=== PATIENT | male | born 1960 | race Caucasian/White ===

== ENCOUNTER 2024-05-05 11:58 | Inpatient (IN) ==
[2024-05-05 12:15] LABS: ABS Basophils 0.1 10^3/uL (0.0-0.1); ABS Eosinophils 0.3 10^3/uL (0.0-0.5); ABS Lymphocytes 2.6 10^3/uL (1.0-4.8); ABS Monocytes 0.9 10^3/uL (0.0-1.1); ABS Neutrophils 6.2 10^3/uL (1.5-7.6); ABS Nucleated RBC 0.01 10^3/ul; Eosinophil % 2.7 %; Hematocrit 42.5 % (38-53); Hemoglobin 14.7 g/dL (13.2-16.3); Lymphocyte % 25.9 %; Mean Corpuscular Hemoglobin 31.2 pg (27-33); Mean Corpuscular Hgb Conc 34.6 g/dL (31-36); Mean Corpuscular Volume 90.1 fL (80-97); Mean Platelet Volume 9.3 fL (7.5-11.2); Nucleated Red Blood Cells % 0.1 %/100WBC (0.0-0.8); Platelet Count 225 10^3/uL (150-450); Red Blood Count 4.72 10^6/uL (4.06-5.63); Red Cell Distribution Width 13.6 % (12-17)
[2024-05-05] MEDS ORDERED: Heparin 5000 UNITS/ML 1 mL VIAL ONE ×2 (12:21→12:22)
[2024-05-05 12:22] LABS: INR 1.12 (0.85-1.14)
[2024-05-05] MEDS ORDERED: Lidocaine 1% VIAL 10 MG/ML 30 ML VIAL ONE ×2 (12:33→19:36)
[2024-05-05] MEDS ORDERED: Heparin 1,000 UNIT/ML 10 ml (10,000 UNITS) CATHLAB/DIALYSIS ONE ×2 (12:33→19:36)
[2024-05-05] MEDS ORDERED: VERAPAMIL 2.5 MG/ML 2 ML VIAL ** 5 mg/2 ml ONE (12:33)
[2024-05-05] MEDS ORDERED: Heparin 2 UNITS/ML 1000 mls 3,000 ML IV ONE ×2 (12:34→19:37)
[2024-05-05] MEDS ORDERED: nitroGLYCERIN DRIP 25,000 MCG/250 ML BTL ONE ×2 (12:34→19:37)
[2024-05-05] MEDS ORDERED: Iohexol 350 (CONTRAST) 200 ML MDV IV ONE ×2 (12:35→19:37)
[2024-05-05] MEDS ORDERED: fentaNYL 100 mcg/2 ml 50 MCG/ML VIAL ONE ×3 (12:35→19:36)
[2024-05-05] MEDS ORDERED: Midazolam 5 mg/5 ml VIAL 1 mg/ml 5 ml VIAL (5 mg) ONE ×2 (12:35→19:36)
[2024-05-05 13:06] LABS: Calcium 9.1 mg/dL (8.6-10.3); Creatinine, Serum 0.96 mg/dL (0.67-1.17); eGFR CKD-EPI 87.7 (>60)
[2024-05-05 13:07] LABS: Albumin 3.9 g/dL (3.5-5.7); Albumin/Globulin Ratio 1.7 (1-3); Globulin 2.3 g/dL (2-4); Total Bilirubin 0.4 mg/dL (0.2-1.0); Total Protein 6.2 g/dL (6.4-8.9)
[2024-05-05] MEDS ORDERED: Bivalirudin 250 MG VIAL ONE ×4 (13:08→20:14)
[2024-05-05 13:19] LABS: Potassium 4.1 mmol/L (3.5-5.0)
[2024-05-05] MEDS ORDERED: Atropine 0.1 MG/ML 10 ml SYR (1 mg) ONE ×2 (13:36→20:45)
[2024-05-05] MEDS ORDERED: Iohexol 350 (CONTRAST) 100 ML PAK IV ONE ×3 (13:53→15:41)
[2024-05-05] MEDS ORDERED: Heparin 2 UNITS/ML 1000 mls 1,000 ML IV ONE ×2 (14:01→14:43)
[2024-05-05] MEDS ORDERED: Amiodarone IV 150 mg/3 ml VIAL ONE (15:08)
[2024-05-05] MEDS ORDERED: Magnesium Sulfate IV 1GM/100ML 1 GM/100 ML BAG IV ONE ×2 (15:09→15:19)
[2024-05-05] MEDS ORDERED: Amiodarone 150 mg IVPREMIX 150 MG/100 ML BAG IV ONE (15:10)
[2024-05-05] MEDS ORDERED: Phenylephrine 40 mcg/mL 10mL (400mcg) SYRINGE ONE ×2 (15:26→20:57)
[2024-05-05] MEDS ORDERED: DOPamine 800 MG/250 ML IVPREMX 800 MG/250 ML ML CENTR ONE (15:29)
[2024-05-05] MEDS ORDERED: Norepinephrine 4 MG/250mL D5W 0 MCG/0 ML BAG IV ONE (15:34)
[2024-05-05 18:06] LABS: HDL Cholesterol 34.5 mg/dL
[2024-05-05] MEDS: NS 0.9% 1000 ml BAG 1,000 ML IV SCH (18:25)
[2024-05-05] MEDS: Ondansetron 4 mg VIAL 2 MG/ML 2 ml VIAL IV ONE (18:41)
[2024-05-05] MEDS ORDERED: Eptifibatide IV (Load dose) 2 MG/ML 10 ml VIAL ONE ×2 (21:02→21:10)
[2024-05-05] MEDS ORDERED: Heparin 5000 UNITS/ML 1 mL VIAL IV SCH (22:00)
[2024-05-05] MEDS: Heparin DRIP 25,000 UNITS BAG 25,000 UNITS/250 ML BAG IV SCH (22:19)
[2024-05-05] MEDS: Ondansetron 4 mg VIAL 2 MG/ML 2 ml VIAL ONE (22:25)
[2024-05-05] MEDS: Heparin DRIP 25,000 UNITS BAG 25,000 UNITS/250 ML BAG IV ONE (22:26)
[2024-05-05] MEDS: Nicotine PATCH 21 MG/24 HR PATCH TRANSDERM SCH (22:28)
[2024-05-06 05:36] LABS: ABS Eosinophils 0.1 10^3/uL (0.0-0.5); ABS Lymphocytes 1.4 10^3/uL (1.0-4.8); ABS Monocytes 1.1 10^3/uL (0.0-1.1); Eosinophil % 0.6 %; Hematocrit 38.7 % (38-53); Hemoglobin 13.3 g/dL (13.2-16.3); Mean Corpuscular Hemoglobin 30.7 pg (27-33); Mean Corpuscular Hgb Conc 34.5 g/dL (31-36); Mean Platelet Volume 9.6 fL (7.5-11.2); Platelet Count 228 10^3/uL (150-450); Red Blood Count 4.35 10^6/uL (4.06-5.63); Red Cell Distribution Width 13.3 % (12-17); White Blood Count 12.6 10^3/uL (3.6-10.2)
[2024-05-06 05:54] LABS: Albumin 3.7 g/dL (3.5-5.7); Albumin/Globulin Ratio 1.9 (1-3); Calcium 8.6 mg/dL (8.6-10.3); Creatinine, Serum 0.69 mg/dL (0.67-1.17); HDL Cholesterol 30.7 mg/dL; Total Bilirubin 0.5 mg/dL (0.2-1.0); Total Protein 5.7 g/dL (6.4-8.9); eGFR CKD-EPI 102.7 (>60)
[2024-05-06] MEDS: NS 0.9% 1000 ml BAG 1,000 ML IV SCH (06:04)
[2024-05-06] MEDS: Albuterol/Ipratropium NEB.SOL (2.5/0.5 MG) 3 ML NEB.SOLN INH PRN (11:46)
[2024-05-06] MEDS ORDERED: Albuterol/Ipratropium NEB.SOL (2.5/0.5 MG) 3 ML NEB.SOLN INH PRN (15:41)
[2024-05-06] MEDS: Furosemide 20 mg/2 ml IV VIAL IV SLOW PU ONE (16:40)
[2024-05-06] MEDS: Enoxaparin 40 MG/0.4 ML SYR SUBCUT SCH (20:36)
[2024-05-07 06:03] LABS: ABS Basophils 0.1 10^3/uL (0.0-0.1); ABS Eosinophils 0.2 10^3/uL (0.0-0.5); ABS Lymphocytes 1.9 10^3/uL (1.0-4.8); ABS Monocytes 1.3 10^3/uL (0.0-1.1); ABS Neutrophils 6.8 10^3/uL (1.5-7.6); Hematocrit 39.3 % (38-53); Hemoglobin 13.5 g/dL (13.2-16.3); Lymphocyte % 18.6 %; Mean Corpuscular Hemoglobin 31.1 pg (27-33); Mean Corpuscular Hgb Conc 34.4 g/dL (31-36); Mean Corpuscular Volume 90.3 fL (80-97); Mean Platelet Volume 9.9 fL (7.5-11.2); Platelet Count 198 10^3/uL (150-450); Red Blood Count 4.35 10^6/uL (4.06-5.63); Red Cell Distribution Width 13.6 % (12-17); White Blood Count 10.3 10^3/uL (3.6-10.2)
[2024-05-07 06:19] LABS: Calcium 8.7 mg/dL (8.6-10.3); Creatinine, Serum 0.73 mg/dL (0.67-1.17); Potassium 3.9 mmol/L (3.5-5.0)
[2024-05-07] MEDS ORDERED: Sulfur Hexaflouride MICROSPHR 25 MG VIAL ONE (08:04)
[2024-05-07] MEDS: Sulfur Hexaflouride MICROSPHR 25 MG VIAL IV PRN (08:30)
[2024-05-07] MEDS ORDERED: Mometasone/Formoter 100/5 MDI INH SCH (10:30)
[2024-05-07 16:30] VITALS: BP 102/67
== END 2024-05-07 16:00 | disposition home or self-care (01) | DRG 174 ==
LOC: ED 11:58 → ICU 12:35 → CHICATH 13:30 → ICU 16:13